=== PATIENT | male | born 1950 | race Caucasian/White ===

== ENCOUNTER 2024-08-14 07:28 | Day surgery (SDC) | payer OTHER ==
[2024-08-07 14:47] LABS: BASOPHILS # (AUTO) 0.1 X10'3 (0-0.2); BASOPHILS % (AUTO) 1.2 % (0-1); EOSINOPHILS # (AUTO) 0.2 X10'3 (0-0.9); LYMPHOCYTES # (AUTO) 2.8 X10'3 (1.1-4.8); LYMPHOCYTES % (AUTO) 30.1 % (21-51); MEAN CORPUSCULAR HEMOGLOBIN 30.8 PG (27.0-31.0); MEAN CORPUSCULAR HGB CONC 33.7 g/dL (33.0-36.5); MEAN CORPUSCULAR VOLUME 91.5 FL (78-98); MEAN PLATELET VOLUME 7.1 FL (7.4-10.4); MONOCYTES # (AUTO) 0.6 X10'3 (0-0.9); MONOCYTES % (AUTO) 6.2 % (2-12); NEUTROPHILS # (AUTO) 5.7 X10'3 (1.8-7.7); NEUTROPHILS % (AUTO) 60.5 % (42-75); PRE OP HEMATOCRIT 44.5 % (42.0-52.0); PRE OP PLATELET COUNT 266 X10'3 (140-440); PRE OP WHITE BLOOD COUNT 9.5 10'3 (4.8-10.8); RED BLOOD COUNT 4.86 X10'6 (4.70-6.10); RED CELL DISTRIBUTION WIDTH 14.1 % (11.5-14.5)
[2024-08-07 15:06] LABS: ALBUMIN 3.8 G/DL (3.4-5.0); ALBUMIN/GLOBULIN RATIO 1.2 (1.1-1.5); ALKALINE PHOSPHATASE 61 IU/L (46-116); BLOOD UREA NITROGEN 16 MG/DL (7-18); BUN/CREATININE RATIO 14.2 (10.0-20.0); CALCIUM 8.8 MG/DL (8.5-10.1); CHLORIDE 105 MMOL/L (99-107); CREATININE 1.13 MG/DL (0.60-1.10); PRE OP ALT 22 U/L (30-65); PRE OP ANION GAP 6 (8-16); PRE OP AST 26 U/L (10-37); PRE OP BILIRUB, TOTAL 1.5 MG/DL (0.0-1.0); PRE OP GLUCOSE 105 MG/DL (70-104); PRE OP SODIUM 139 MMOL/L (135-145); TOTAL CARBON DIOXIDE 28.2 MMOL/L (24-32); eGFR 64 ML/MIN
[2024-08-07 15:15] LABS: PRE OP POTASSIUM 4.2 MMOL/L (3.4-5.1)
[~2024-08-14] VITALS: Ht 180.3 cm; Wt 94.8 kg
[2024-08-14] VITALS (12 sets, daily range): BP systolic 130–153; BP diastolic 65–90; PULSE 54–77; RESP 7–16; TEMP 97.9; O2SAT 97–100
[2024-08-14] MEDS: ceFAZolin 2gm in dextrose, iso 50 ML IV ONE (05:30)
[~2024-08-14 07:28] MED LIST: DICL100G31 TOP; PANT-47 PO; ZOLP5TAB8 PO
[2024-08-14] MEDS: famotidine 20mg tablet PO ONE (08:22)
[2024-08-14] MEDS: ringers solution, lacted 1,000 ML IV SCH (08:23)
[2024-08-14] MEDS: INDOCYANINE GREEN 25 MG/10 ML VIAL IV ONE (08:23)
[2024-08-14] MEDS ORDERED: LIDOcaine 1% 30ml preserv. free vial ONE (09:25)
[2024-08-14] MEDS ORDERED: BUPIVAcaine 0.5% inj/PF 0 ML ONE (09:25)
[2024-08-14] MEDS ORDERED: BUPIVAcaine 2.5mg/ml inj 50ml vial (contains preservative) ONE (09:25)
[2024-08-14] MEDS ORDERED: sevoflurane 250ml liquid IH ONE (09:34)
[2024-08-14] MEDS ORDERED: fentaNYL/PF 50MCG/1 ML 2ML syringe ONE (09:37)
[2024-08-14] MEDS ORDERED: propofol inj 20 ML IV ONE (09:38)
[2024-08-14] MEDS ORDERED: midazolam 1 mg/ML 2ml injection ONE (09:38)
[2024-08-14] MEDS ORDERED: rocuronium 10mg/ml inj IV ONE (09:38)
[2024-08-14] MEDS: BUPIVAcaine 2.5mg/ml inj 50ml vial (contains preservative) SQ ONE (09:59)
[2024-08-14] MEDS ORDERED: ondansetron/PF 4mg/2ml inj ONE (10:13)
[2024-08-14] MEDS ORDERED: dexamethasone sod phosphate 4mg/ml inj. ONE (10:13)
[2024-08-14] MEDS ORDERED: morphine 2 MG/ML inj. syringe IV PRN (10:25)
[2024-08-14] MEDS ORDERED: ringers solution, lacted 1,000 ML IV SCH (10:25)
[2024-08-14] MEDS ORDERED: ondansetron/PF 4mg/2ml inj IV PRN (10:25)
[2024-08-14] MEDS ORDERED: proCHLORperazine 10 MG/2 ml inj IV PRN (10:25)
[2024-08-14] MEDS ORDERED: meperidine/PF 25mg/ml syringe IV PRN ×2 (10:25)
[2024-08-14] MEDS ORDERED: morphine 4 MG/ML inj SYRINge IV PRN (10:25)
[2024-08-14] MEDS ORDERED: neostigmine methylsulfate 1 MG/ML 10ml vial ONE (10:31)
[2024-08-14] MEDS ORDERED: glycopyrrolate 0.2mg/ml inj ONE (10:31)
[2024-08-14] MEDS: meperidine/PF 25mg/ml syringe IV PRN (11:36)
[2024-08-14] MEDS: oxyCODONE/APAP 5-325mg tablet PO PRN (12:41)
== END 2024-08-14 12:49 | disposition home or self-care (01) ==
LOC: PRE-OP 07:28
PROVIDERS: ATTEND Surgery
DX: K80.10 Calculus of gallbladder with chronic cholecystitis without obstruction (principal); R94.31 Abnormal electrocardiogram [ECG] [EKG]; K21.9 Gastro-esophageal reflux disease without esophagitis; I25.2 Old myocardial infarction; M19.90 Unspecified osteoarthritis, unspecified site; Z85.46 Personal history of malignant neoplasm of prostate; Z87.891 Personal history of nicotine dependence; Z79.899 Other long term (current) drug therapy; Z90.79 Acquired absence of other genital organ(s); Z90.89 Acquired absence of other organs; Z98.890 Other specified postprocedural states
CPT/HCPCS: 36415; 47563; 80053; 82948; 85025; 93005; J0690; J1100; J2003; J2175; J2250; J2405; J2704; J2710; J3010; J3490; J7030; J7120; S2900; Z7506; Z7508; Z7512; A4215; A4618; A7000